=== PATIENT | female | born 1985 | race Caucasian/White ===

== ENCOUNTER 2019-04-21 13:06 | Emergency (ER) | payer BC ==
[~2019-04-21] VITALS: Ht 152.4 cm; Wt 83.0 kg
--- NOTE | 2019-04-21 13:21 | NUR ---
Patient to ER bed 2 to gown for evaluation. Side rails up. Report given to Asa WILSON.
[2019-04-21 13:23] VITALS: BP_SYST 125
--- NOTE | 2019-04-21 13:24 | NUR ---
Patient is awake, alert, and oriented x4. 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 Patient reports a history of sciatica.
--- NOTE | 2019-04-21 13:25 | NUR ---
ALFIE Azevedo at bedside examining patient.
[2019-04-21] MEDS ORDERED: HYDROcodone/ACETAMIN 7.5-325 MG TAB PO ONE (13:30)
[2019-04-21] MEDS ORDERED: KETOROLAC TROMETHAMINE 30 MG VIAL IM ONE (13:30)
--- NOTE | 2019-04-21 15:02 | NUR ---
Patient given written and verbal discharge instructions and verbalizes understanding. ER MD discussed with patient the results and treatment provided. Patient in stable condition. ID arm band removed. Rx of ibuprofen, medrol, norco given. Patient educated on pain management and to follow up with PMD. Pain Scale 0/10. Opportunity for questions provided and answered. Medication side effect fact sheet provided.
[2019-04-21 15:03] VITALS: BP_SYST 108
== END 2019-04-21 15:03 | disposition home or self-care (01) ==
LOC: SED 13:06
DX: S39.012A Strain of muscle, fascia and tendon of lower back, initial encounter (principal); X50.9XXA Other and unspecified overexertion or strenuous movements or postures, initial encounter; Y93.89 Activity, other specified; Y92.89 Other specified places as the place of occurrence of the external cause; Y99.8 Other external cause status
CPT/HCPCS: 72100; 81002; 81025; 96372; 99283; J1885